=== PATIENT | female | born 1960 | race African-American/Black ===

== ENCOUNTER 2019-10-02 09:55 | Inpatient (IN) | payer OTHER, MEDICAID ==
[~2019-10-02] VITALS: Ht 175.3 cm; Wt 76.4 kg
[~2019-10-02 09:55] MED LIST: BISM525O28 PO; FERR256T PO
[2019-10-02] MEDS ORDERED: ONDANSETRON HCL 4MG/2ML INJ IV STA (10:49)
[2019-10-02] MEDS ORDERED: SODIUM CHLORIDE 0.9% 1,000 ML IV ONE (10:49)
[2019-10-02] MEDS ORDERED: FAMOTIDINE 20MG/2ML VIAL IV STA (10:49)
[2019-10-02 11:30] LABS: CHLORIDE 89 mEq/L (98-107)
[2019-10-02 11:35] LABS: BASOPHILS % 0.3 % (0.0-2.0); EOSINOPHILS % 0.3 % (0.0-5.0); HEMATOCRIT. 28.6 % (36.0-48.0); LYMPHOCYTES % 15.3 % (20.0-50.0); MEAN CORPUSCULAR HEMOGLOBIN 36.2 pg (28.0-32.0); MEAN CORPUSCULAR VOLUME 103.8 fL (81.0-99.0); MEAN PLATELET VOLUME 10.5 fl (7.4-10.4); MONOCYTES % 11.4 % (2.0-8.0); NEUTROPHILS % 72.7 % (40.0-76.0); PLATELET 90 x1000/uL (130-400); RED BLOOD CELL COUNT 2.75 mill/uL (4.2-5.4); RED CELL DISTRIBUTION WIDTH 14.8 % (11.6-14.6)
[2019-10-02 11:36] LABS: INR 1.1; PROTHROMBIN TIME 11.9 sec (9.6-11.0)
[2019-10-02] MEDS ORDERED: POTASSIUM CHLORIDE 20MEQ TABLET SR PO ONE (12:00)
[2019-10-02] MEDS ORDERED: KCL 20MEQ/100ML PREMIX 100 ML IV ONE (12:00)
[2019-10-02 12:03] LABS: AMYLASE 180 IU/L (25-115); ETHANOL BLOOD < 10 mg/dL
[2019-10-02] MEDS ORDERED: PIPERACILLIN/TAZ 3.375G PREMIX 50 ML IV ONE (14:00)
[2019-10-02] MEDS ORDERED: ONDANSETRON HCL 4MG/2ML INJ IV PRN (15:30)
[2019-10-02] MEDS ORDERED: MAGNESIUM 2 G PREMIX 50 ML IV ONE (15:30)
[2019-10-02] MEDS ORDERED: ACETAMINOPHEN 325MG TABLET PO PRN (15:30)
[2019-10-02] MEDS ORDERED: POTASSIUM CHLORIDE 20MEQ TABLET SR PO NR (15:30)
[2019-10-02] MEDS: SODIUM CHLORIDE 0.9% 1,000 ML IV SCH (16:26)
[2019-10-02 16:29] LABS: HEPATITIS B SURFACE ANTIGEN NEGATIVE
[2019-10-02 16:59] LABS: HEPATITIS A AB IGM NEGATIVE (NEGATIVE)
[2019-10-02 18:33] LABS: CLARITY URINE CLEAR (CLEAR); COLOR URINE DARK YELLOW (YELLOW); KETONES URINE TRACE (NEGATIVE); LEUKOCYTE ESTERASE URINE 1+ (NEGATIVE); NITRITE URINE NEGATIVE (NEGATIVE); OCCULT BLOOD URINE NEGATIVE (NEGATIVE); PROTEIN URINE 1+ (NEGATIVE); SPECIFIC GRAVITY URINE 1.024 (1.005-1.030)
[2019-10-02 18:44] LABS: *AMPHETAMINES SCREEN URINE NEGATIVE (NEGATIVE); *BARBITURATES SCREEN URINE NEGATIVE (NEGATIVE); *BENZODIAZEPINES SCREEN URINE NEGATIVE (NEGATIVE); *COCAINE SCREEN URINE NEGATIVE (NEGATIVE)
[2019-10-02 18:45] LABS: CANNABINOID URINE SCREEN NEGATIVE (NEGATIVE); METHADONE URINE SCREEN NEGATIVE (NEGATIVE); OPIATES URINE SCREEN NEGATIVE (NEGATIVE); PHENCYCLIDINE URINE SCREEN NEGATIVE (NEGATIVE)
[2019-10-02 22:42] VITALS: BP 116/68
[2019-10-02 22:50] VITALS: BP 116/68
[2019-10-03] MEDS: SODIUM CHLORIDE 0.9% 1,000 ML IV SCH ×3 (02:43→21:30)
[2019-10-03 04:00] VITALS: BP 100/56
[2019-10-03 07:18] LABS: BASOPHILS % 0.6 % (0.0-2.0); EOSINOPHILS % 1.2 % (0.0-5.0); HEMATOCRIT. 24.4 % (36.0-48.0); HEMOGLOBIN. 8.4 g/dL (12.0-16.0); LYMPHOCYTES % 28.9 % (20.0-50.0); MEAN CORPUSCULAR HEMOGLOBIN 36.3 pg (28.0-32.0); MEAN PLATELET VOLUME 9.7 fl (7.4-10.4); MONOCYTES % 14.5 % (2.0-8.0); NEUTROPHILS % 54.8 % (40.0-76.0); PLATELET 93 x1000/uL (130-400); RED BLOOD CELL COUNT 2.32 mill/uL (4.2-5.4); RED CELL DISTRIBUTION WIDTH 14.8 % (11.6-14.6)
[2019-10-03 07:27] LABS: CHLORIDE 104 mEq/L (98-107)
[2019-10-03 08:00] VITALS: BP 104/61
[2019-10-03] MEDS ORDERED: PANTOPRAZOLE SODIUM 40 MG/VIAL IV SCH (09:00)
[2019-10-03] MEDS ORDERED: POTASSIUM CHLORIDE 20MEQ TABLET SR PO NR (11:00)
[2019-10-03 12:00] VITALS: BP 110/61
[2019-10-03 16:00] VITALS: BP 112/66
[2019-10-03] MEDS ORDERED: MAGNESIUM 2 G PREMIX 50 ML IV NR (18:00)
[2019-10-03 19:18] LABS: TOTAL IRON BINDING CAPACITY 178 ug/dL (250-450)
[2019-10-03 19:35] LABS: FOLIC ACID (FOLATE) SERUM 7.9 ng/mL (>5.38)
[2019-10-03 20:00] VITALS: BP 108/66
[2019-10-03 20:19] LABS: GAMMA GLUTAMYL TRANSPEPTIDASE 1009 IU/L (7-32)
[2019-10-03 20:33] LABS: HEMATOCRIT 23.2 % (36.0-48.0); HEMOGLOBIN 7.9 g/dL (12.0-16.0)
[2019-10-04] VITALS: BP 109/72
[2019-10-04 05:00] VITALS: BP 118/65
[2019-10-04] MEDS ORDERED: DIATR MEGLU/DIATRIZOATE SOLN 30ML PO NR (07:00)
[2019-10-04] MEDS: SODIUM CHLORIDE 0.9% 1,000 ML IV SCH ×2 (07:30→17:30)
[2019-10-04 08:00] VITALS: BP 120/68
[2019-10-04] MEDS ORDERED: IOHEXOL-300 100 ML BOTTLE ONE (08:54)
[2019-10-04 08:59] LABS: HEMATOCRIT. 25.1 % (36.0-48.0); HEMOGLOBIN. 8.7 g/dL (12.0-16.0); MEAN CORPUSCULAR HEMOGLOBIN 36.7 pg (28.0-32.0); MEAN CORPUSCULAR VOLUME 105.3 fL (81.0-99.0); PLATELET 118 x1000/uL (130-400); RED BLOOD CELL COUNT 2.38 mill/uL (4.2-5.4); RED CELL DISTRIBUTION WIDTH 15.1 % (11.6-14.6)
[2019-10-04 09:05] LABS: CHLORIDE 99 mEq/L (98-107)
[2019-10-04] MEDS ORDERED: POTASSIUM CHLORIDE 20MEQ TABLET SR PO NR (10:00)
[2019-10-04] MEDS ORDERED: MAGNESIUM 2 G PREMIX 50 ML IV NR (11:00)
[2019-10-04 12:00] VITALS: BP 114/70
[2019-10-04 14:27] LABS: NUCLEATED RED BLOOD CELLS 6 /100 WBC; PLATELET ESTIMATE DECREASED
[2019-10-04 16:00] VITALS: BP 105/50
[2019-10-04 20:00] VITALS: BP 100/64
[2019-10-04] MEDS: PANTOPRAZOLE 40MG DR TABLET PO SCH (21:03)
[2019-10-05] VITALS: BP 107/56
[2019-10-05] MEDS: SODIUM CHLORIDE 0.9% 1,000 ML IV SCH ×3 (03:30→23:30)
[2019-10-05 04:00] VITALS: BP 91/49
[2019-10-05 07:21] LABS: HEMATOCRIT. 23.5 % (36.0-48.0); HEMOGLOBIN. 8.1 g/dL (12.0-16.0); MEAN CORPUSCULAR HEMOGLOBIN 36.4 pg (28.0-32.0); MEAN CORPUSCULAR VOLUME 105.9 fL (81.0-99.0); MEAN PLATELET VOLUME 9.8 fl (7.4-10.4); PLATELET 132 x1000/uL (130-400); RED BLOOD CELL COUNT 2.22 mill/uL (4.2-5.4); RED CELL DISTRIBUTION WIDTH 15.2 % (11.6-14.6)
[2019-10-05 08:00] VITALS: BP 99/57
[2019-10-05 09:20] LABS: CHLORIDE 102 mEq/L (98-107)
[2019-10-05 12:00] VITALS: BP 99/51
[2019-10-05 13:39] LABS: NUCLEATED RED BLOOD CELLS 3 /100 WBC; PLATELET ESTIMATE NORMAL
[2019-10-05 16:00] VITALS: BP 101/55
[2019-10-05 20:00] VITALS: BP 98/66
[2019-10-05] MEDS: PANTOPRAZOLE 40MG DR TABLET PO SCH (21:36)
[2019-10-06] VITALS: BP 101/61
[2019-10-06 04:00] VITALS: BP 105/63
[2019-10-06 07:01] LABS: INR 1.2; PROTHROMBIN TIME 12.3 sec (9.6-11.0)
[2019-10-06 07:18] LABS: HEMATOCRIT. 24.8 % (36.0-48.0); HEMOGLOBIN. 8.5 g/dL (12.0-16.0); MEAN CORPUSCULAR HEMOGLOBIN 36.1 pg (28.0-32.0); MEAN CORPUSCULAR VOLUME 105.4 fL (81.0-99.0); MEAN PLATELET VOLUME 9.6 fl (7.4-10.4); PLATELET 168 x1000/uL (130-400); RED BLOOD CELL COUNT 2.35 mill/uL (4.2-5.4); RED CELL DISTRIBUTION WIDTH 15.6 % (11.6-14.6)
[2019-10-06 08:00] VITALS: BP 112/65
[2019-10-06 08:41] LABS: CHLORIDE 101 mEq/L (98-107)
[2019-10-06 08:46] LABS: GAMMA GLUTAMYL TRANSPEPTIDASE 724 IU/L (7-32)
[2019-10-06] MEDS ORDERED: IOHEXOL-300 100 ML BOTTLE ONE (09:02)
[2019-10-06] MEDS ORDERED: MAGNESIUM 2 G PREMIX 50 ML IV NR (10:30)
[2019-10-06 10:52] LABS: NUCLEATED RED BLOOD CELLS 2 /100 WBC; PLATELET ESTIMATE NORMAL
[2019-10-06] MEDS ORDERED: POTASSIUM CHLORIDE INJ 40 MEQ in DEXT 5% WATER 500 ML IV NR (11:00)
[2019-10-06] MEDS: SODIUM CHLORIDE 0.9% 1,000 ML IV SCH ×2 (11:16→21:35)
[2019-10-06 12:00] VITALS: BP 106/60
[2019-10-06 16:00] VITALS: BP 106/60
[2019-10-06 20:00] VITALS: BP 99/57
[2019-10-06 21:18] LABS: FOLIC ACID (FOLATE) SERUM 8.5 ng/mL (>5.38)
[2019-10-06] MEDS: PANTOPRAZOLE 40MG DR TABLET PO SCH (21:34)
[2019-10-06 22:11] LABS: T4 FREE 1.17 ng/dL (0.76-1.46)
[2019-10-07] VITALS: BP 98/56
[2019-10-07 04:00] VITALS: BP 108/73
[2019-10-07] MEDS: SODIUM CHLORIDE 0.9% 1,000 ML IV SCH ×2 (06:39→20:58)
[2019-10-07 06:50] LABS: HEMATOCRIT. 24.3 % (36.0-48.0); HEMOGLOBIN. 8.2 g/dL (12.0-16.0); MEAN CORPUSCULAR HEMOGLOBIN 35.9 pg (28.0-32.0); MEAN CORPUSCULAR VOLUME 106.4 fL (81.0-99.0); PLATELET 167 x1000/uL (130-400); RED BLOOD CELL COUNT 2.29 mill/uL (4.2-5.4); RED CELL DISTRIBUTION WIDTH 15.4 % (11.6-14.6)
[2019-10-07 07:04] LABS: CHLORIDE 105 mEq/L (98-107)
[2019-10-07 08:00] VITALS: BP 104/67
[2019-10-07 12:00] VITALS: BP 110/69
[2019-10-07 14:16] LABS: NUCLEATED RED BLOOD CELLS 4 /100 WBC
[2019-10-07 14:18] LABS: PLATELET ESTIMATE NORMAL
[2019-10-07] MEDS ORDERED: POTASSIUM CHLORIDE 20MEQ/PACKET PO NR (15:00)
[2019-10-07 16:00] VITALS: BP 128/69
[2019-10-07] MEDS ORDERED: POTASSIUM CHLORIDE INJ 40 MEQ in DEXT 5% WATER 250 ML IV NR (16:30)
[2019-10-07] MEDS: DEXAMETHASONE 4MG/ML 1ML VIAL IV SCH (18:51)
[2019-10-07 20:00] VITALS: BP 110/69
[2019-10-07] MEDS: PANTOPRAZOLE 40MG DR TABLET PO SCH (20:58)
[2019-10-08] VITALS: BP 108/65
[2019-10-08] MEDS: DEXAMETHASONE 4MG/ML 1ML VIAL IV SCH ×5 (02:17→23:31)
[2019-10-08] MEDS: SODIUM CHLORIDE 0.9% 1,000 ML IV SCH ×3 (02:18→21:04)
[2019-10-08 04:00] VITALS: BP 111/71
[2019-10-08 06:49] LABS: BASOPHILS % 0.2 % (0.0-2.0); EOSINOPHILS % 0.1 % (0.0-5.0); HEMATOCRIT. 25.4 % (36.0-48.0); HEMOGLOBIN. 8.6 g/dL (12.0-16.0); LYMPHOCYTES % 9.9 % (20.0-50.0); MEAN CORPUSCULAR HEMOGLOBIN 36.1 pg (28.0-32.0); MEAN CORPUSCULAR VOLUME 106.7 fL (81.0-99.0); MEAN PLATELET VOLUME 9.4 fl (7.4-10.4); MONOCYTES % 6.7 % (2.0-8.0); NEUTROPHILS % 83.1 % (40.0-76.0); PLATELET 178 x1000/uL (130-400); RED BLOOD CELL COUNT 2.38 mill/uL (4.2-5.4); RED CELL DISTRIBUTION WIDTH 15.7 % (11.6-14.6)
[2019-10-08 07:28] LABS: CHLORIDE 105 mEq/L (98-107)
[2019-10-08 08:00] VITALS: BP 123/79
[2019-10-08 12:00] VITALS: BP 114/70
[2019-10-08 16:00] VITALS: BP 133/79
[2019-10-08 20:00] VITALS: BP 116/55
[2019-10-08] MEDS: PANTOPRAZOLE 40MG DR TABLET PO SCH (21:04)
[2019-10-09] VITALS: BP 110/60
[2019-10-09 04:00] VITALS: BP 102/54
[2019-10-09] MEDS: DEXAMETHASONE 4MG/ML 1ML VIAL IV SCH ×2 (05:26→12:23)
[2019-10-09 06:18] LABS: CHLORIDE 103 mEq/L (98-107)
[2019-10-09 07:26] LABS: BASOPHILS % 0.1 % (0.0-2.0); HEMATOCRIT. 25.2 % (36.0-48.0); HEMOGLOBIN. 8.5 g/dL (12.0-16.0); LYMPHOCYTES % 8.4 % (20.0-50.0); MEAN CORPUSCULAR HEMOGLOBIN 35.8 pg (28.0-32.0); MEAN CORPUSCULAR VOLUME 106.6 fL (81.0-99.0); MEAN PLATELET VOLUME 10.1 fl (7.4-10.4); MONOCYTES % 11.4 % (2.0-8.0); NEUTROPHILS % 80.1 % (40.0-76.0); PLATELET 168 x1000/uL (130-400); RED BLOOD CELL COUNT 2.37 mill/uL (4.2-5.4); RED CELL DISTRIBUTION WIDTH 16.4 % (11.6-14.6)
[2019-10-09] MEDS ORDERED: CYANOCOBALAMIN 1000MCG TABLET PO SCH (07:50)
[2019-10-09 08:00] VITALS: BP 113/72
[2019-10-09 12:00] VITALS: BP 111/77
[2019-10-09] MEDS: SODIUM CHLORIDE 0.9% 1,000 ML IV SCH (12:30)
[2019-10-09 16:17] VITALS: BP 115/73
[2019-10-09] MEDS ORDERED: FAMOTIDINE 20MG TABLET PO SCH (21:00)
== END 2019-10-09 17:52 | disposition home health service (06) | DRG 282 ==
LOC: ER 09:55 → EDBEDREQ 13:18 → EDBEDREQSVC 13:18 → ENRESERV 22:02 → 8WST 22:38 → 7WST 10-03 00:50 → 5WST 10-04 04:39 → 6EST 10-04 21:34
PROVIDERS: ADMIT Internal Medicine; ATTEND Internal Medicine
DX: K85.90 Acute pancreatitis without necrosis or infection, unspecified (principal); G82.20 Paraplegia, unspecified; G62.9 Polyneuropathy, unspecified; E87.8 Other disorders of electrolyte and fluid balance, not elsewhere classified; E87.1 Hypo-osmolality and hyponatremia; E87.6 Hypokalemia; E83.42 Hypomagnesemia; D69.6 Thrombocytopenia, unspecified; K76.0 Fatty (change of) liver, not elsewhere classified; M48.07 Spinal stenosis, lumbosacral region; D51.9 Vitamin B12 deficiency anemia, unspecified; D53.9 Nutritional anemia, unspecified; G62.81 Critical illness polyneuropathy; R29.6 Repeated falls; K80.20 Calculus of gallbladder without cholecystitis without obstruction; M48.02 Spinal stenosis, cervical region; M48.061 Spinal stenosis, lumbar region without neurogenic claudication; M50.222 Other cervical disc displacement at C5-C6 level; M50.223 Other cervical disc displacement at C6-C7 level; M51.36 Other intervertebral disc degeneration, lumbar region; K92.1 Melena; Z20.828 Contact with and (suspected) exposure to other viral communicable diseases; Z86.73 Personal history of transient ischemic attack (TIA), and cerebral infarction without residual deficits; Z87.81 Personal history of (healed) traumatic fracture
CPT/HCPCS: 36415; 70551; 71045; 72141; 72146; 72148; 74176; 74177; 76705; 80048; 80053; 80076; 80305; 80320; 81003; 82150; 82248; 82270; 82550; 82607; 82728; 82746; 82977; 83036; 83540; 83550; 83735; 84439; 84443; 84466; 84481; 85014; 85018; 85025; 86705; 86709; 86803; 86850; 86900; 87340; 93005; 93970; 97116; 97162; 97166; 97530; 99285; C9113; J1100; J2405; J2543; J3475; J3480; J3490; J7030; J7060; Q9963; Q9967; G0480; U0003-CS